=== PATIENT | male | born 1975 | race Caucasian/White ===

== ENCOUNTER 2018-04-19 00:11 | Emergency (ER) | payer OTHER ==
[~2018-04-19] VITALS: Ht 182.9 cm; Wt 77.0 kg
[~2018-04-19 00:11] MED LIST: CEPH500C3 PO; Z.0.NO CURRENT MEDS
[2018-04-19 00:14] VITALS: BP 164/99; PULSE 100; RESP 18; TEMP 98.4; O2SAT 95
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
== END 2018-04-19 01:09 | disposition left against medical advice (07) ==
LOC: PHED 00:11
DX: F10.129 Alcohol abuse with intoxication, unspecified (principal); M54.2 Cervicalgia; V47.5XXA Car driver injured in collision with fixed or stationary object in traffic accident, initial encounter; S80.212A Abrasion, left knee, initial encounter; S80.211A Abrasion, right knee, initial encounter; S50.812A Abrasion of left forearm, initial encounter; S50.811A Abrasion of right forearm, initial encounter; W19.XXXA Unspecified fall, initial encounter; Y93.02 Activity, running; F17.200 Nicotine dependence, unspecified, uncomplicated; Z53.20 Procedure and treatment not carried out because of patient's decision for unspecified reasons
CPT/HCPCS: 99281